=== PATIENT | male | born 2000 | race Caucasian/White ===

== ENCOUNTER → 2021-09-24 | Outpatient (CLI) | payer OTHER ==
--- NOTE | 2021-09-24 12:30 | XR ---
EXAMINATION TYPE: XR ankle complete RT DATE OF EXAM: 09/24/2021 COMPARISON: NONE HISTORY: Pain TECHNIQUE: Frontal, lateral and oblique images of the right ankle are obtained. COMPARISON: None. FINDINGS: There is no acute fracture/dislocation evident. The joint spaces appear within normal paredes its. Soft tissue swelling overlying the lateral malleolus. IMPRESSION: There is no acute fracture or dislocation seen. Soft tissue swelling overlying the lateral malleolus likely secondary to underlying soft tissue injur y.
== END | disposition home or self-care (01) ==
LOC: RADXRMAIN 11:45
PROVIDERS: ATTEND Emergency Medicine
DX: S93.401A Sprain of unspecified ligament of right ankle, initial encounter (principal)

== ENCOUNTER → 2021-10-02 | Outpatient (CLI) | payer OTHER ==
--- NOTE | 2021-10-02 10:34 | XR ---
EXAMINATION TYPE: XR ankle complete RT DATE OF EXAM: 10/02/2021 COMPARISON: 09/24/2021 HISTORY: 21-year-old male [id number], ankle pain TECHNIQUE: 3 views FINDINGS: Prominent lateral and anterior sided soft tissue swelling. The ankle mortise is congruent w ith preservation of the distal tibia-fibula overlap. Talar dome is intact. No acute fracture, subluxa tion, dislocation. Small delineation to the Achilles tendon. Subtalar joint align. IMPRESSION: Prominent lateral and anterior soft tissue swelling may reflect ligamentous injury. The swelling is d ecreasing from the 09/24/2021 exam. No acute osseous abnormality seen.
== END | disposition home or self-care (01) ==
LOC: RADXRMAIN 10:00
PROVIDERS: ATTEND Emergency Medicine
DX: S93.401D Sprain of unspecified ligament of right ankle, subsequent encounter (principal); X58.XXXD Exposure to other specified factors, subsequent encounter